=== PATIENT | female | born 1975 | race Caucasian/White ===

== ENCOUNTER 2019-07-22 22:17 | Emergency (ER) | payer OTHER ==
[2019-07-22 22:28] VITALS: BP 132/75; PULSE 67; TEMP 98.5; BMI 21.4
--- NOTE | 2019-07-23 01:34 | PDOC ---
History of Present Illness - General Chief Complaint: Laceration Stated Complaint: LACERATION Time Seen by Provider: 07/23/19 00:06 History Source: Patient, Family - History of Present Illness Initial Comments: 44 y/o F, w/ hx of cutting herself and bipolar disorder, presents to the ED w/ a 4cm laceration on her left forearm. Pt states that she usually cuts herself whenever she is depressed or stressed but today around 8 pm she cut herself too deep and ended up coming to the ED. Pt denies suicidal ideation, f/c/n/v, chest pain, numbness or tingling of her extremities. 07/23/19 01:34 07/23/19 01:37 Past History - Travel Traveled outside of the country in the last 30 days: No Close contact w/someone who was outside of country & ill: No - Past Medical History COPD: No Psychiatric Problems: Yes (Bipolar) - Psycho Social/Smoking Cessation Hx Smoking History: Never smoked Review of Systems - Review of Systems Able to Perform ROS?: Yes Is the patient limited Hungarian proficient: No Constitutional: Yes: Symptoms Reported, Weight Stable. No: Chills, Diaphoresis , Fever HEENTM: Yes: Symptoms Reported. No: Eye Pain, Blurred Vision Respiratory: Yes: Symptoms reported. No: Cough, Shortness of Breath, Wheezing Cardiac (ROS): Yes: Symptoms Reported. No: Chest Pain ABD/GI: Yes: Symptoms Reported. No: Abdominal Distended, Difficulty Swallowing , Nausea, Vomiting, Abdominal cramping Neurological: Yes: Symptoms reported. No: Headache, Numbness, Paresthesia *Physical Exam - Vital Signs Last Vital Signs Temp Pulse Resp BP Pulse Ox 98.5 F 67 19 132/75 100 07/22/19 22:22 07/22/19 22:22 07/22/19 22:22 07/22/19 22:22 07/22/19 22:22 - Physical Exam General Appearance: Yes: Nourished, Appropriately Dressed HEENT: positive: EOMI, JUAQUIN, Normal ENT Inspection, Pharynx Normal Neck: positive: Trachea midline, Normal Thyroid, Supple Respiratory/Chest: positive: Lungs Clear, Normal Breath Sounds. negative: Crackles, Stridor, Wheezing Cardiovascular: positive: Regular Rhythm, Regular Rate, S1, S2. negative: Murmur, Gallop/S3, Gallop/S4 Vascular Pulses: Dorsalis-Pedis (R): 2+, Doralis-Pedis (L): 2+ Gastrointestinal/Abdominal: positive: Normal Bowel Sounds, Soft. negative: Guarding, Rebound, Tenderness Extremity: positive: Normal Inspection, Normal Range of Motion, Tender. negative: Coldness, Cyanosis, Pedal Edema (Left forearm- 4 cm horizontal laceration penetrating to the adipose tissue with minimal bleeding. ), Erythema Neurologic: positive: Fully Oriented, Alert, Normal Mood/Affect Medical Decision Making - Medical Decision Making 44 y/o F, w/ hx of cutting herself and bipolar disorder, presents to the ED w/ a 4cm laceration on her left forearm. #Left forearm laceration Pt had a tetanus shot 4 years ago, no tetanus shot indicated today 5 sutures placed, wound stitched Educated pt on following up with her primary care in [place] as she will be returning to [place] today 07/23/19 01:41 07/23/19 01:44 Discharge - Discharge Information Problems reviewed: Yes Clinical Impression/Diagnosis: Laceration Condition: Improved Disposition: HOME - Admission No - Follow up/Referral - Patient Discharge Instructions Patient Printed Discharge Instructions: DI for Laceration Repair, DI for Suture Removal Additional Instructions: You were seen in the emergency room for a laceration of your arm While in the emergency room, we evaluated you and placed 5 sutures to stitch your wound. You can put on Bacitracin ointment regularly to keep the wound clean. Ensure you keep the wound clean and dry. Avoid exertion with your left arm as it can open up your wound. Please do not attempt to remove the stitches your self. If you seen redness around the wound or discharge coming out of the wound, please return to the emergency room. Please follow up with your primary care physician within 1 week to have your stitches removed Return to the emergency room, if you experience worsening of your symptoms, fevers, bleeding from wound, pain around the wound, redness around the wound, swelling or white colored discharge form the wound. - Post Discharge Activity
--- NOTE | 2019-07-23 02:11 | PDOC ---
Documentation entered by Lazara Lion SCRIBE, acting as scribe for Perez Dooley MD. Perez Dooley MD: This documentation has been prepared by the zanaibeAyad Lincy, SCRIBE, under my direction and personally reviewed by me in its entirety. I confirm that the documentation accurately reflects all work, treatment, procedures, and medical decision making performed by me. Attending Attestation - Resident Resident Name: Josesito Ortiz - ED Attending Attestation I have performed the following: I have examined & evaluated the patient, The case was reviewed & discussed with the resident, I agree w/resident's findings & plan, Exceptions are as noted - HPI HPI: 07/23/19 00:59 The patient is a 44 year old female with bipolar disorder and depression who presents to the emergency department with a right forearm lacerations. The patient reports she used a clean razor to cut herself around 8:00 pm today, states its something I do to self harm denies suicidal ideation. The patient reports she is following up with a therapist and is currently on medication for depression and bipolar disorder. However the patient reports shes on vacation current and her routine has been a little mixed up, so she hasnt been able to take the medication on time. Denies SI or HI. - Physicial Exam PE: 07/23/19 01:01 GENERAL: The patient is awake, alert, and fully oriented, Nontoxic - in no acute distress. EXTREMITIES: +4cm laceration on the left forearm, no active bleeding, no deep structure visualization, flexion of the digit are intact, sensation intact throughout. Normal range of motion, no edema. No clubbing or cyanosis. No cords , erythema, or tenderness. PSYCH: Denies SI or HI. - Medical Decision Making 07/23/19 00:27 44y F hx of depresion, rosales cuts her self and presens with a 2-3 cm laceration on her forearm after cutting around 8pm. 07/23/19 02:11 laceration closed with god approximation by resident under my direct observation return in 10-14 days for suture rmoval signs of infctin dw patient for which she should return Procedures - Consent Consent obtained: Verbal - Laceration/Wound Repair Left Volar Arm Wound Length: 2.6 to 5.0 cm Wound Explored: clean Wound's Depth, Shape: superficial Irrigated w/ Saline: Yes Anesthesia: 1% Lidocaine Amount of Anesthetic (ccs): 4 Wound Debrided: minimal Wound Repaired With: Sutures Suture Size/Type: 4:0 Number of Sutures: 5 Sterile Dressing Applied: Yes
== END 2019-07-23 02:16 | disposition home or self-care (01) ==
LOC: JER 22:17
PROC: 0HQEXZZ Repair Left Lower Arm Skin, External Approach (ICD-10-PCS; principal; 2019-07-22)
DX: S51.812A Laceration without foreign body of left forearm, initial encounter (principal); X78.8XXA Intentional self-harm by other sharp object, initial encounter; Y93.89 Activity, other specified; Y92.89 Other specified places as the place of occurrence of the external cause; Y99.8 Other external cause status; F31.9 Bipolar disorder, unspecified
CPT/HCPCS: 12002-25; 99281-25